=== PATIENT | female | born 2000 | race Caucasian/White ===

== ENCOUNTER 2021-01-26 19:15 | Inpatient (IN) | payer MEDICAID ==
[~2021-01-26] VITALS: Ht 157.5 cm; Wt 79.4 kg
[2021-01-26] MEDS ORDERED: BUTORPHANOL TARTRATE 2 MG/ML VIAL IV PRN (21:30)
[2021-01-26] MEDS ORDERED: DEXT 5%/LR + PITOCIN 20UNITS/L 1,000 ML IV SCH (21:30)
[2021-01-26] MEDS ORDERED: METHYLERGONOVINE MALEATE 0.2 MG/ML IM PRN (21:30)
[2021-01-26] MEDS ORDERED: NALOXONE HCL 0.4 MG/ML 1ML VIAL IM PRN (21:30)
[2021-01-26] MEDS ORDERED: LIDOCAINE HCL 1% 20ML VIAL (Pyxis) INJ INFIL SCH (21:30)
[2021-01-27] MEDS: LACTATED RINGERS 1,000 ML IV SCH ×5 (00:33→12:04)
[2021-01-27] MEDS: MISOPROSTOL 100MCG TABLET VG PRN ×2 (00:33→05:50)
[2021-01-27 00:39] LABS: BASOPHILS % 0.2 % (0.0-2.0); EOSINOPHILS % 1.2 % (0.0-5.0); HEMATOCRIT. 37.1 % (36.0-48.0); HEMOGLOBIN. 12.8 g/dL (12.0-16.0); LYMPHOCYTES % 18.8 % (20.0-50.0); MEAN PLATELET VOLUME 9.4 fl (7.4-10.4); MONOCYTES % 7.6 % (2.0-8.0); NEUTROPHILS % 72.2 % (40.0-76.0); PLATELET 201 x1000/uL (130-400); RED BLOOD CELL COUNT 4.27 mill/uL (4.2-5.4); RED CELL DISTRIBUTION WIDTH 14.6 % (11.6-14.6)
[2021-01-27 00:52] LABS: CLARITY URINE TURBID (CLEAR); COLOR URINE YELLOW (YELLOW); KETONES URINE NEGATIVE (NEGATIVE); LEUKOCYTE ESTERASE URINE 3+ (NEGATIVE); NITRITE URINE NEGATIVE (NEGATIVE); OCCULT BLOOD URINE 2+ (NEGATIVE); PH URINE 7.5 (4.5-8.0); PROTEIN URINE 1+ (NEGATIVE); SPECIFIC GRAVITY URINE 1.012 (1.005-1.030); UROBILINOGEN URINE 0.2 E.U./dL (0.2-1.0)
[2021-01-27] MEDS ORDERED: PREN-176 PO (01:07)
[2021-01-27 01:10] LABS: *COCAINE SCREEN URINE NEGATIVE (NEGATIVE); METHADONE URINE SCREEN NEGATIVE (NEGATIVE); OPIATES URINE SCREEN NEGATIVE (NEGATIVE); PHENCYCLIDINE URINE SCREEN NEGATIVE (NEGATIVE)
[2021-01-27 01:11] LABS: *AMPHETAMINES SCREEN URINE NEGATIVE (NEGATIVE); *BENZODIAZEPINES SCREEN URINE NEGATIVE (NEGATIVE); CANNABINOID URINE SCREEN NEGATIVE (NEGATIVE)
[2021-01-27 01:12] LABS: *BARBITURATES SCREEN URINE NEGATIVE (NEGATIVE)
[2021-01-27 01:13] LABS: INR 0.9; PARTIAL THROMBOPLASTIN TIME 25.7 sec (23.4-31.0); PROTHROMBIN TIME 9.8 sec (9.6-11.0)
[2021-01-27 01:19] LABS: HEPATITIS B SURFACE ANTIGEN NEGATIVE
[2021-01-27] MEDS ORDERED: ROPIVACAINE HCL/PF EPIDURAL 200 ML EPI SCH (05:30)
[2021-01-27] MEDS ORDERED: INFLUENZA VACCINE 05/PF 0.5 ML SYRINGE IM ONE (10:15)
[2021-01-27] MEDS ORDERED: ROPIVACAINE HCL/PF EPIDURAL 200 ML EPI ONE (10:36)
[2021-01-27] MEDS ORDERED: FENTANYL CITRATE/PF 50MCG/ML 2ML VIAL ONE (10:36)
[2021-01-27] MEDS ORDERED: LIDOCAINE HCL 2%/EPINEPHRINE 1:100,000 20 ML VIAL INFIL ONE (14:37)
[2021-01-27] MEDS ORDERED: LANOLIN OINT 7GM TUBE TOP PRN (19:15)
[2021-01-27] MEDS ORDERED: GLYCERIN/WITCH HAZEL LEAF MEDICATED PAD TOP PRN (19:15)
[2021-01-27] MEDS ORDERED: DIPHENHYDRAMINE 25MG CAPSULE PO PRN (19:15)
[2021-01-27] MEDS ORDERED: HEMORRHOIDAL SUPP PR PRN (19:15)
[2021-01-27] MEDS ORDERED: IBUPROFEN 400MG TABLET PO PRN (19:15)
[2021-01-27] MEDS ORDERED: ACETAMINOPHEN WITH CODEINE 300/30MG TABLET PO PRN (19:15)
[2021-01-27] MEDS ORDERED: RHO(D) IMMUNE GLOBULIN 300 MCG/SYR IM PRN (19:15)
[2021-01-27] MEDS ORDERED: BISACODYL 10MG SUPP PR PRN (19:15)
[2021-01-27] MEDS ORDERED: BENZOCAINE/LANOLIN/ALOE VERA SPRAY TOP PRN (19:15)
[2021-01-27] MEDS ORDERED: DEXT 5%/LR + PITOCIN 20UNITS/L 1,000 ML IV SCH ×2 (19:15→19:27)
[2021-01-27 20:50] VITALS: BP 111/61
[2021-01-27] MEDS: IBUPROFEN 800MG TABLET PO PRN (21:36)
[2021-01-27] MEDS: DOCUSATE SODIUM 100MG CAPSULE PO SCH (21:36)
[2021-01-27] MEDS: MAGNESIUM/ALUMINUM HYDROXIDE/SIMETHICONE 30ML UDC PO SCH (21:37)
[2021-01-27] MEDS: SIMETHICONE 80MG TABLET CHEW PO SCH (21:37)
[2021-01-27 22:00] VITALS: BP 114/67
[2021-01-27] MEDS ORDERED: TETANUS, DIPHTHERIA, PERTUSSIS VAC/PF 0.5ML (>10YR OLD) IM ONE (22:30)
[2021-01-28] VITALS: BP 115/54
[2021-01-28] MEDS: IBUPROFEN 800MG TABLET PO PRN ×3 (03:51→21:59)
[2021-01-28 04:00] VITALS: BP 114/57
[2021-01-28] MEDS ORDERED: INFLUENZA VACCINE 05/PF 0.5 ML SYRINGE IM ONE (06:00)
[2021-01-28] MEDS ORDERED: TETANUS, DIPHTHERIA, PERTUSSIS VAC/PF 0.5ML (>10YR OLD) IM ONE (06:00)
[2021-01-28 07:30] VITALS: BP 114/61
[2021-01-28 07:42] LABS: BASOPHILS % 0.2 % (0.0-2.0); EOSINOPHILS % 0.9 % (0.0-5.0); HEMATOCRIT. 28.6 % (36.0-48.0); HEMOGLOBIN. 9.7 g/dL (12.0-16.0); LYMPHOCYTES % 14.1 % (20.0-50.0); MEAN CORPUSCULAR HEMOGLOBIN 29.8 pg (28.0-32.0); MEAN CORPUSCULAR VOLUME 88.2 fL (81.0-99.0); MEAN PLATELET VOLUME 9.1 fl (7.4-10.4); NEUTROPHILS % 78.8 % (40.0-76.0); PLATELET 150 x1000/uL (130-400); RED BLOOD CELL COUNT 3.25 mill/uL (4.2-5.4)
[2021-01-28] MEDS: MAGNESIUM/ALUMINUM HYDROXIDE/SIMETHICONE 30ML UDC PO SCH ×4 (08:47→21:58)
[2021-01-28] MEDS: FERROUS SULFATE 325MG TABLET PO SCH ×2 (08:48→12:18)
[2021-01-28] MEDS: PRENATAL VIT/FE FUMARATE/FA TABLET PO SCH (08:48)
[2021-01-28] MEDS: SIMETHICONE 80MG TABLET CHEW PO SCH ×4 (08:48→21:58)
[2021-01-28 17:00] VITALS: BP 115/61
[2021-01-28 19:30] VITALS: BP 106/66
[2021-01-28] MEDS: DOCUSATE SODIUM 100MG CAPSULE PO SCH (21:58)
[2021-01-29 04:00] VITALS: BP 106/56
[2021-01-29] MEDS: IBUPROFEN 800MG TABLET PO PRN (06:34)
[2021-01-29 09:00] VITALS: BP 106/61
[2021-01-29] MEDS: PRENATAL VIT/FE FUMARATE/FA TABLET PO SCH (09:22)
[2021-01-29] MEDS: FERROUS SULFATE 325MG TABLET PO SCH (09:23)
== END 2021-01-29 13:30 | disposition home or self-care (01) | DRG 560 ==
LOC: 8 EST LDRP 19:15 → OBSVTOIN 19:15 → 8EST 01-27 20:50
PROVIDERS: ADMIT Obstetrics & Gynecology; ATTEND Obstetrics & Gynecology
PROC: 10D07Z6 Extraction of Products of Conception, Vacuum, Via Natural or Artificial Opening (ICD-10-PCS; principal; 2021-01-27)
PROC: 0KQM0ZZ Repair Perineum Muscle, Open Approach (ICD-10-PCS; 2021-01-27)
DX: O42.92 Full-term premature rupture of membranes, unspecified as to length of time between rupture and onset of labor (principal); Z37.0 Single live birth; O70.1 Second degree perineal laceration during delivery; Z20.822 Contact with and (suspected) exposure to COVID-19; O77.0 Labor and delivery complicated by meconium in amniotic fluid; Z3A.38 38 weeks gestation of pregnancy
CPT/HCPCS: 36415; 76805; 76818; 80305; 81003; 85025; 86592; 86703; 86762; 86850; 86900; 87340; 87426; 90686; 90715; 94760; 99281; J0595; J2590; J2795; J3010; J3490; A4315